=== PATIENT | female | born 1960 | race Caucasian/White ===

== ENCOUNTER 2016-12-26 22:33 | Emergency (ER) | payer MEDICAID ==
[2016-12-26 22:50] VITALS: RESP 18; TEMP 97.3
[2016-12-26] MEDS ORDERED: CHLORDIAZEPOXIDE 25MG PREPK#6 BTL TAKEHOME ONE (22:59)
[2016-12-26] MEDS ORDERED: chlordiazePOXIDE 25 MG CAP PO ONE (22:59)
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
[2016-12-26 23:22] VITALS: BP 144/98; PULSE 105; O2SAT 94
== END 2016-12-26 23:22 | disposition home or self-care (01) ==
LOC: EDUNIT#
DX: F10.129 Alcohol abuse with intoxication, unspecified (principal); F17.200 Nicotine dependence, unspecified, uncomplicated

== ENCOUNTER 2016-12-29 00:14 | Emergency (ER) | payer MEDICAID ==
[2016-12-29 00:36] VITALS: RESP 16; O2SAT 96
--- NOTE | 2016-12-29 01:09 | EDPHY ---
H & P Stated Complaint: c/o having choked on steak 4 days ago, continues to have diff swallowing Time Seen by Provider: 12/29/16 00:47 HPI/ROS: HPI The patient presents with difficulty swallowing and throat pain which has been present for the last 5 days. While she was intoxicated, she believe she ate a large piece of steak which got stuck in her throat. This occurred about 5 days ago. She says since then she has had difficulty swallowing food that is hard or chewy like meat. She is able to eat foods like peanut butter and jelly sandwiches and drink fluids without any difficulty. She has no drooling. She says she has had intermittent symptoms the knows that she needs to cut up her meet into small pieces to be able to eat properly. When she is intoxicated, she normally does not do this. She has not had any vomiting or bleeding. She has never been evaluated for this.. REVIEW OF SYSTEMS Constitutional: No fever, no chills. Eyes: No discharge. ENT: No sore throat. Cardiovascular: No chest pain, no palpitations. Respiratory: No cough, no shortness of breath. Gastrointestinal: No abdominal pain, no vomiting. Genitourinary: No hematuria. Musculoskeletal: No back pain. Skin: No rashes. Neurological: No headache. PMHx: Chronic alcohol abuse Soc Hx: Currently at the [facility] in detox, her sister last month PHYSICAL General Appearance: Alert, no distress Eyes: Pupils equal and round no pallor or injection ENT, Mouth: Mucous membranes moist Respiratory: There are no retractions, lungs are clear to auscultation Cardiovascular: Regular rate and rhythm Gastrointestinal: Abdomen is soft and non-tender, no masses, bowel sounds normal Neurological: A&O, moves all extremities Skin: Warm and dry, no rashes Musculoskeletal: Neck is supple non tender Extremities: symmetrical, full range of motion Psychiatric: Patient is oriented X 3, there is no agitation Source: Patient - Medical/Surgical History Hx Asthma: No Hx Chronic Respiratory Disease: No Hx Diabetes: No Hx Cardiac Disease: No Hx Renal Disease: No Hx Cirrhosis: No Hx Alcoholism: Yes Hx HIV/AIDS: No Hx Splenectomy or Spleen Trauma: No Other PMH: ETOH, depression/anxiety, tubal ligation - Social History Smoking Status: Heavy smoker Constitutional: Initial Vital Signs Temperature (C) 36.5 C 12/29/16 00:30 Heart Rate 105 H 12/29/16 00:30 Respiratory Rate 16 12/29/16 00:30 Blood Pressure 116/80 12/29/16 00:30 O2 Sat (%) 96 12/29/16 00:30 O2 Delivery Mode Room Air Allergies/Adverse Reactions: No Known Allergies Allergy (Verified 12/29/16 00:36) Home Medications: Medication Instructions Recorded Fluoxetine HCl [Prozac 40 mg] 40 mg PO 11/14/12 QUETIAPINE FUMARATE [Seroquel] 75 mg PO 11/14/12 Effexor 12/29/16 Topamax 12/29/16 Vistaril 12/29/16 Medical Decision Making Differential Diagnosis: This is a 56-year-old female presenting with difficulty swallowing for the last 5 days after eating a large piece of steak. She is able to eat soft foods and liquids without difficulty now. Differential diagnosis includes esophageal ring, esophageal web, achalasia, esophagitis. Given that the patient is able to tolerate most things by mouth. She can follow up as an outpatient with Gastroenterology. I have advised her to avoid any crunchy or hard foods. Departure - Departure Disposition: Home, Routine, Self-Care Clinical Impression: Dysphagia Qualifiers: Dysphagia type: unspecified Qualified Code(s): R13.10 - Dysphagia, unspecified Condition: Good Instructions: Dysphagia (ED) Additional Instructions: Please make sure to eat only soft foods and liquids until your feeling better. I have given you the information for Gastroenterology for you to follow up with. Return to the emergency room if your worse in any way. Referrals: [facility] [Other] - As per Instructions Carlos Mixon MD [Medical Doctor] - As per Instructions
[2016-12-29 01:49] VITALS: BP 138/80; PULSE 98; TEMP 98.6
== END 2016-12-29 02:00 | disposition home or self-care (01) ==
DX: R13.10 Dysphagia, unspecified (principal); F17.200 Nicotine dependence, unspecified, uncomplicated

== ENCOUNTER 2017-03-23 18:43 | Emergency (ER) | payer MEDICAID ==
[2017-03-23 18:54] VITALS: BP 131/87; PULSE 88; RESP 16; TEMP 98.8; O2SAT 90
--- NOTE | 2017-03-23 18:56 | EDPHY ---
H & P HPI/ROS: Chief Complaint: Alcohol intoxication HPI: 85-unsx-emy-year-old female who was found near the [place] [address] intoxicated. Patient passed out, arousable. Patient states she has been on a 10 day binge drinking. Is homeless Patient brought in by EMS for further evaluation. No obvious signs of trauma per EMS. Patient is a history of schizophrenia is been off her medications. Denies suicidal or homicidal ideations. Is feeling mildly paranoid. ROS: 10 point Review of Systems is negative except as noted in the HPI. PMH: Schizophrenia Medications: Seroquel and Prozac, noncompliant Allergies: Denies Social History: Positive for alcohol, homeless Family History: non-contributory Physical Exam: Gen: Awake, alert, slurred speech, ambulating unassisted HEENT: Atraumatic Nose: no epistaxis or deformity Eyes: PERRLA, EOMI Mouth: Moist mucosa Neck: Supple, no step-offs or deformity Chest: Atraumatic, lungs clear to auscultation Heart: S1, S2 normal, no murmur Abd: Soft, non-tender, no guarding Back: Atraumatic Ext: no edema, atraumatic Skin: no rash Neuro: Sensation grossly intact, Strength 5/5 in bilateral upper and lower extremities - Medical/Surgical History Hx Asthma: No Hx Chronic Respiratory Disease: No Hx Diabetes: No Hx Cardiac Disease: No Hx Renal Disease: No Hx Cirrhosis: No Hx Alcoholism: Yes Hx HIV/AIDS: No Hx Splenectomy or Spleen Trauma: No Other PMH: ETOH, depression/anxiety, tubal ligation - Social History Smoking Status: Heavy smoker Allergies/Adverse Reactions: No Known Allergies Allergy (Verified 12/29/16 00:36) Home Medications: Medication Instructions Recorded Fluoxetine HCl [Prozac 40 mg] 40 mg PO 11/14/12 QUETIAPINE FUMARATE [Seroquel] 75 mg PO 11/14/12 Effexor 12/29/16 Topamax 12/29/16 Vistaril 12/29/16 Medical Decision Making ED Course/Re-evaluation: Patient is intoxicated. She is ambulating unassisted in the emergency department. Vital signs are normal. She has no signs of trauma. She is without other complaint at this time. She is medically cleared for the [facility]. Departure - Departure Disposition: Home, Routine, Self-Care Clinical Impression: Alcoholic intoxication Condition: Good Instructions: Alcohol Intoxication (ED), Chlordiazepoxide (By mouth) Additional Instructions: Please seek help to decrease your alcohol consumption. Referrals: [facility],. [Clinic] - As per Instructions
[2017-03-23] MEDS ORDERED: CHLORDIAZEPOXIDE 25MG PREPK#6 BTL TAKEHOME ONE (18:57)
== END 2017-03-23 19:06 | disposition home or self-care (01) ==
LOC: EDUNIT#
DX: F10.129 Alcohol abuse with intoxication, unspecified (principal); F17.200 Nicotine dependence, unspecified, uncomplicated

== ENCOUNTER 2017-03-28 09:54 | Emergency (ER) | payer MEDICAID ==
[2017-03-28 10:03] VITALS: BP 137/90; PULSE 92; RESP 20; TEMP 98.1; O2SAT 95
--- NOTE | 2017-03-28 10:32 | EDPHY ---
H & P Time Seen by Provider: 03/28/17 10:27 HPI/ROS: CHIEF COMPLAINT: Dysuria HISTORY OF PRESENT ILLNESS: This patient is a 56 year old female complaining of intermittent moderate dysuria onset one week ago. She endorses a moderate burning sensation with urination, but denies frequency or urgency. She denies fever, vomiting, abdominal pain, flank pain or other associated symptoms. Past Medical/Surgical History: Depression, anxiety, tubal ligation, alcohol use Social History: Lives in [place]. Smoking Status: Heavy smoker Physical Exam: General Appearance: Alert, talkative Gastrointestinal: Abdomen is soft and non- tender Neurological: A&O, nonfocal, normal gait Skin: Warm and dry, no rash Extremities: Normal inspection Psychiatric: Mood and affect normal Constitutional: Initial Vital Signs Temperature (C) 36.7 C 03/28/17 10:01 Heart Rate 92 03/28/17 10:01 Respiratory Rate 20 03/28/17 10:01 Blood Pressure 137/90 H 03/28/17 10:01 O2 Sat (%) 95 03/28/17 10:01 O2 Delivery Mode Room Air Allergies/Adverse Reactions: No Known Allergies Allergy (Verified 03/28/17 10:00) Home Medications: Medication Instructions Recorded Fluoxetine HCl [Prozac 40 mg] 40 mg PO 11/14/12 QUETIAPINE FUMARATE [Seroquel] 75 mg PO 11/14/12 Effexor 12/29/16 Topamax 12/29/16 Vistaril 12/29/16 Cephalexin [Keflex (*)] 500 mg PO TID #21 cap 03/28/17 Medical Decision Making ED Course/Re-evaluation: 56 year old female presenting with one week history of dysuria. Urinalysis consistent with urinary tract infection. Urine culture sent. Plan to discharge home in good condition with prescription for Keflex and instructions to follow up with a primary care provider for further concerns. Return precautions discussed. - Data Points Laboratory Results: 03/28/17 10:15 Urine Color JAZIEL Urine Appearance TURBID Urine pH 7.0 (5.0-7.5) Ur Specific [place] 1.009 (1.002-1.030) Urine Protein 2+ H (NEGATIVE) Urine Ketones NEGATIVE (NEGATIVE) Urine Blood 2+ H (NEGATIVE) Urine Nitrate NEGATIVE (NEGATIVE) Urine Bilirubin NEGATIVE (NEGATIVE) Urine Urobilinogen NEGATIVE EU EU (0.2-1.0) Ur Leukocyte Esterase 3+ H (NEGATIVE) Urine RBC 50-182 /hpf H /hpf (0-3) Urine WBC 50-182 /hpf H /hpf (0-3) Ur Epithelial Cells NONE SEEN /lpf /lpf (NONE-1+) Urine Glucose NEGATIVE (NEGATIVE) Departure - Departure Disposition: Home, Routine, Self-Care Clinical Impression: Urinary tract infection Qualifiers: Urinary tract infection type: site unspecified Hematuria presence: without hematuria Qualified Code(s): N39.0 - Urinary tract infection, site not specified Condition: Good Instructions: Urinary Tract Infection in Women (ED) Additional Instructions: 1. Please take your Keflex as prescribed, three times daily. It is important that you finish your entire course of medication. 2. Follow up with a primary care provider for symptoms unresolved. We have referred you to our primary care provider denial resolution specialist, as well as a local clinic. 3. Seek care urgently if you develop fever, chills, vomiting, or other worsening of condition. Referrals: [facility],. [Clinic] - As per Instructions Prescriptions: Cephalexin [Keflex (*)] 500 mg PO TID #21 cap Report Scribed for: Sophia Kyle Report Scribed by: Shirlene Tavera Date of Report: 03/28/17 Time of Report: 11:10 Physician Review and Approval Statement: 03/28/17 11:10 Portions of this note were transcribed by a medical coding specialist. I personally performed a history, physical exam, medical decision making, and confirmed accuracy of information the transcribed note.
[2017-03-28 10:45] LABS: COLOR AMBER; LEUKOCYTE ESTERASE,URINE 3+ (NEGATIVE); NITRITE,URINE NEGATIVE (NEGATIVE)
[2017-03-28 10:47] LABS: RBC,URINE 50-182 /hpf (0-3); WBC,URINE 50-182 /hpf (0-3)
== END 2017-03-28 11:15 | disposition home or self-care (01) ==
DX: N39.0 Urinary tract infection, site not specified (principal); F17.200 Nicotine dependence, unspecified, uncomplicated; B95.7 Other staphylococcus as the cause of diseases classified elsewhere

== ENCOUNTER 2017-05-25 19:18 | Emergency (ER) | payer MEDICAID ==
[2017-05-25 19:24] VITALS: RESP 18; O2SAT 96
--- NOTE | 2017-05-25 19:32 | EDPHY ---
H & P Time Seen by Provider: 05/25/17 19:25 HPI/ROS: CHIEF COMPLAINT: Left foot and ankle pain since last evening HISTORY OF PRESENT ILLNESS: 56-year-old female arrives via private vehicle complaining of acute left foot and ankle pain after she accidentally rolled her foot hot last evening. She has been able to bear weight albeit with pain to the lateral malleolus and 5th metatarsal region. No deformity intact skin. No paresthesia. No proximal tibia or fibular pain. No knee pain. No fall from height PHYSICAL EXAM (Prior to examination, patient consented to physical exam, hands were washed and my usual and customary physical exam procedures followed) 1) GENERAL: Well-developed, well-nourished, alert and oriented. Appears to be in no acute distress. 2) HEAD: Normocephalic 3) HEENT: Pupils equal, round, reactive to light bilaterally. 4) LUNGS: Breathing comfortably. 5) MUSCULOSKELETAL: proximal tibia and fibula nontender . Fibular head and knee nontender. Tender to palpation lateral malleolus. No deformity no angulation. Tender to palpation 5th metatarsal. No deformity no angulation] negative Smalls test, compartments soft 6) SKIN: intact no tenting. 7) VASCULAR: DP,PT pulses and cap refill present and brisk DIFFERENTIAL DIAGNOSIS: in no particular order including but not limited to fracture, sprain, compartment syndrome Procedure: Splint A Calypso boot splint was applied by ER medical delivery technician. After application of the splint I returned and re-examined the patient. The splint was adequately immobilizing the joint and distal to the splint the patient's circulation and sensation were intact. Patient shows no signs of compartment syndrome. Was given orthopedic precautions. Smoking Status: Heavy smoker Constitutional: Initial Vital Signs Temperature (C) 36.8 C 05/25/17 19:22 Heart Rate 100 05/25/17 19:22 Respiratory Rate 18 05/25/17 19:22 Blood Pressure 134/90 H 05/25/17 19:22 O2 Sat (%) 96 05/25/17 19:22 O2 Delivery Mode Room Air Allergies/Adverse Reactions: No Known Allergies Allergy (Verified 05/25/17 19:21) Home Medications: Medication Instructions Recorded QUETIAPINE FUMARATE [Seroquel] 75 mg PO 11/14/12 Effexor 12/29/16 Topamax 12/29/16 Vistaril 12/29/16 MDM/Departure - [facility] Imaging Results: Imaging Impressions Ankle X-Ray 05/25/17 19:30 Impression: Talar- navicular joint capsule avulsions. 2. Left Foot , 3 views History:Pain post trauma. Findings: Dorsal midfoot fractures are confirmed. No malalignment or dislocation is identified. Incidentally noted is a moderate plantar calcaneal spur. Impression: Lula-navicular joint capsule avulsions. Foot X-Ray 05/25/17 19:30 Impression: Talar- navicular joint capsule avulsions. 2. Left Foot , 3 views History:Pain post trauma. Findings: Dorsal midfoot fractures are confirmed. No malalignment or dislocation is identified. Incidentally noted is a moderate plantar calcaneal spur. Impression: Lula-navicular joint capsule avulsions. Images were reviewed by myself Imaging: I viewed and interpreted images myself - Depart Disposition: Home, Routine, Self-Care Clinical Impression: Avulsion fracture of ankle Qualifiers: Encounter type: initial encounter Fracture type: closed Laterality: left Qualified Code(s): S82.892A - Other fracture of left lower leg, initial encounter for closed fracture Condition: Good Instructions: Ankle Fracture (ED) Additional Instructions: Return to the ER immediately if you experience discoloration, have worsening pain, numbness, tingling, or any other symptoms that concern you. If you received x-rays in the emergency department today, be advised, that ligamentous , tendon, muscular, and other non-bony injury cannot be fully ruled out. Try to keep your affected extremity elevated above the level of your chest, and keep cold packs on the affected area, for the next 48 hours. Referrals: Warren Perez MD [Medical Doctor] - 2-3 days without fail
[2017-05-25] MEDS ORDERED: IBUPROFEN 200 MG TAB PO ONE (20:25)
[2017-05-25 20:44] VITALS: BP 142/98; PULSE 92; TEMP 98.1
== END 2017-05-25 20:44 | disposition home or self-care (01) ==
DX: S82.892A Other fracture of left lower leg, initial encounter for closed fracture (principal); F17.200 Nicotine dependence, unspecified, uncomplicated; X58.XXXA Exposure to other specified factors, initial encounter
CPT/HCPCS: L4386

== ENCOUNTER 2017-06-19 03:49 | Emergency (ER) | payer MEDICAID ==
--- NOTE | 2017-06-19 03:58 | EDPHY ---
H & P HPI/ROS: HPI CHIEF COMPLAINT: "I am cold and hungry" HISTORY OF PRESENT ILLNESS: This patient 57-year-old female, she is homeless, history of PTSD and schizophrenia, she presents emergency room after she called 911 as she is cold and hungry. She states she was out in the cold weather. She denies any focal medical complaint. She states she just wanted to get somewhere warm and have something to eat. Past Medical History: PTSD, schizophrenia Past Surgical History: No recent surgery Social History: Admits to alcohol use and methamphetamine use. Homeless. Family History: Noncontributory ROS REVIEW OF SYSTEMS: A comprehensive 10 point review of systems is otherwise negative aside from elements mentioned in the history of present illness. Exam Constitutional appears well nontoxic triage nursing summary reviewed, vital signs reviewed, awake/alert. She is not hypothermic. Vital signs stable. Eyes normal conjunctivae and sclera, EOMI, PERRLA. HENT normal inspection, atraumatic, moist mucus membranes, no epistaxis, neck supple/ no meningismus, no raccoon eyes. Respiratory clear to auscultation bilaterally, normal breath sounds, no respiratory distress, no wheezing. Cardiovascular rate normal, regular rhythm, no murmur, no edema, distal pulses normal. Gastrointestinal soft, non-tender, no rebound, no guarding, normal bowel sounds, no distension, no pulsatile mass. Genitourinary no CVA tenderness. Musculoskeletal no midline vertebral tenderness, full range of motion, no calf swelling, no tenderness of extremities, no meningismus, good pulses, neurovascularly intact. Skin pink, warm, & dry, no rash, skin atraumatic. Neurologic awake, alert and oriented x 3, AAOx3, moves all 4 extremities equally, motor intact, sensory intact, CN II-XII intact, normal cerebellar, normal vision, normal speech. Psychiatric normal mood/affect. Heme/Lymph/Immune no lymphadenopathy. Differential Diagnosis: Includes but is not limited to and in no particular order: Environmental exposure, cold exposure, homelessness Medical Decision Making: Plan for this patient warm blanket. Food. Check vital signs make sure she is not hypothermic. If she is hemodynamically stable not hypothermic she can be discharged from the emergency room. Source: Patient, EMS - Medical/Surgical History Hx Asthma: No Hx Chronic Respiratory Disease: No Hx Diabetes: No Hx Cardiac Disease: No Hx Renal Disease: No Hx Cirrhosis: No Hx Alcoholism: Yes Hx HIV/AIDS: No Hx Splenectomy or Spleen Trauma: No Other PMH: ETOH, depression/anxiety, tubal ligation - Social History Smoking Status: Heavy smoker Allergies/Adverse Reactions: No Known Allergies Allergy (Verified 06/19/17 03:53) Home Medications: Medication Instructions Recorded QUETIAPINE FUMARATE [Seroquel] 75 mg PO 11/14/12 Effexor 12/29/16 Topamax 12/29/16 Vistaril 12/29/16 Departure - Departure Disposition: Home, Routine, Self-Care Clinical Impression: Cold exposure Qualifiers: Encounter type: initial encounter Qualified Code(s): T69.9XXA - Effect of reduced temperature, unspecified, initial encounter Condition: Good Instructions: Methamphetamine Abuse (ED) Referrals: Patient,NotPresent [Primary Care Provider] - As per Instructions
[2017-06-19 04:01] VITALS: BP 151/98; PULSE 83; RESP 16; TEMP 98.1; O2SAT 94
== END 2017-06-19 04:05 | disposition home or self-care (01) ==
LOC: EDUNIT#
DX: T69.9XXA Effect of reduced temperature, unspecified, initial encounter (principal); F17.200 Nicotine dependence, unspecified, uncomplicated; X31.XXXA Exposure to excessive natural cold, initial encounter

== ENCOUNTER 2017-09-20 16:21 | Observation (INO) | payer MEDICAID ==
--- NOTE | 2017-09-20 16:27 | EDPHY ---
H & P Source: Patient, Old records Exam Limitations: Intoxication - Medical/Surgical History Hx Asthma: No Hx Chronic Respiratory Disease: No Hx Diabetes: No Hx Cardiac Disease: No Hx Renal Disease: No Hx Cirrhosis: No Hx Alcoholism: Yes Hx HIV/AIDS: No Hx Splenectomy or Spleen Trauma: No Other PMH: ETOH, depression/anxiety, tubal ligation - Social History Smoking Status: Heavy smoker Time Seen by Provider: 09/20/17 16:26 HPI/ROS: HPI: This is a 57-year-old female who presents with Chief Complaint: Alcohol, anxiety Location:epigastric Quality:vomiting Duration:2-3 days Signs and Symptoms: no fever, + nausea, + vomiting, no hematemesis, no blood in stool, + abdominal bloating, + diarrhea, no back pain, no urinary symptoms, no vaginal bleeding/discharge, + indigestion, no chest pain, no shortness of breath Timing: Sudden, intermittent episodes Severity: Moderate to severe Context: Patient has a history of alcoholism, last drink at 3:00 p.m. of vodka , arrives via EMS, presents with 2-3 day of nausea, vomiting and diarrhea. She reports that she had diarrhea for the 1st day approximately 5 times but has since stopped and no episodes in the last 2 days. She reports that she has a burning sensation in the epigastric area, nonradiating in nature, worsened with emesis. She reports that her emesis was black 2 days ago but since it is just dry heaves and phlegm. She had been sober for 56 days but had started drinking again 6 days ago. She was unable to get to the liquor store so she purchased 321 beer which she believes irritated her stomach. She denies any fever/blood in her stool/vaginal bleeding/vaginal discharge/chest pain/shortness of breath. No prior history of esophageal varices/alcoholic gastritis/pancreatitis. She reports that she has a poor appetite has eaten nothing today. Modifying Factors: None Comment: ROS: see HPI Constitutional: No fever, no chills, no weight loss Eyes: No blurred vision Respiratory: No shortness of breath, no cough Cardiovascular: No chest pain, no palpitations Gastrointestinal: No nausea, no vomiting, no diarrhea, no hematemesis, no blood in stool Genitourinary: No dysuria, no blood in urine Extremities: No myalgias, no edema Neurologic: No weakness, no numbness Skin: No rashes, no petechiae Hematologic: No bruising, no bleeding MEDICAL/SURGICAL/SOCIAL HISTORY: Medical/Surgical history: ETOH, depression/anxiety, tubal ligation Social history: No longer homeless and has a place locally. CONSTITUTIONAL: Adult white female who appears older than stated age, patient does not smell of alcohol, awake and alert, no obvious distress HEENT: Atraumatic and normocephalic, PERRL, EOMI. Nonicteric. Tympanic membranes clear. Oropharynx clear, no exudate and moist pink mucosa. Airway patent. No lymphadenopathy. No meningismus. Cardiovascular: Normal S1/S2, regular rate, regular rhythm, without murmur rub or gallop. PULMONARY/CHEST: Symmetrical and moderate epigastric tenderness. Clear to auscultation bilaterally. Good air movement. No accessory muscle usage. ABDOMEN: Soft, mildly distended, nontender, no rebound, no guarding, no peritoneal signs, no masses or organomegaly. No CVAT. EXTREMITIES: 2/2 pulses, strength 5/5, no deformities, no clubbing, no cyanosis or edema. NEUROLOGICAL: no focal neuro deficits. GCS 15. Long-term memory deficits noted. follows 2 step commands. Ambulatory without deficits. SKIN: Warm and dry, no erythema. no rash. Good capillary refill. (Leigh Means) Constitutional: Initial Vital Signs Temperature (C) 36.9 C 09/20/17 16:32 Heart Rate 125 H 09/20/17 16:32 Respiratory Rate 18 09/20/17 16:32 Blood Pressure 150/110 H 09/20/17 16:32 O2 Sat (%) 95 09/20/17 16:32 O2 Delivery Mode Room Air Allergies/Adverse Reactions: No Known Allergies Allergy (Verified 06/19/17 03:53) Home Medications: Medication Instructions Recorded QUETIAPINE FUMARATE [Seroquel] 75 mg PO 11/14/12 Effexor 12/29/16 Topamax 12/29/16 DULoxetine 09/20/17 Medical Decision Making - Diagnostics EKG Interpretation: EKG interpreted by me shows sinus tachycardia with normal interval and axis. QRS is normal. There is no significant ST elevation or depression. There is no arrhythmia. The rate is 115 (Shmuel,Michael S) 12 lead EKG: Indication: Abdominal pain Rhythm: Sinus tachycardia, rate of 115 beats per minute [place]: Normal Intervals: Normal QRS: Normal ST segments: Nonspecific changes T segment: Nonspecific changes INTERPRETATION: No acute ischemic changes The 12 lead EKG was interpreted by myself and with attending. (Leigh Means) Imaging Results: Imaging Impressions Abdomen CT 09/20/17 16:37 Impression: 1. Hepatomegaly with profound steatosis. 2. Moderate-sized hiatal hernia with concentric thickening of the distal thoracic esophagus above the hernia. Endoscopic correlation is recommended. 3. Query duodenitis involving the third portion. Findings were discussed with Leigh Means PA-C at 18:13, on 09/20/2017. Chest X-Ray 09/20/17 16:59 Impression: Negative chest.. ED Course/Re-evaluation: I also saw the patient in the emergency department at 5:45 p.m.. I reviewed the history of sobriety and then recent drinking. I discussed with her her abdominal pain and vomiting. Her exam shows tenderness in the epigastrium. Otherwise heart lung exam is normal. I reviewed her EKG. The patient and I discussed treatment plan including recommendation for admission. She expresses understanding and agreement (Michael Mi) EKG, labs, urinalysis, IV fluids, IV medications, oral medications, CT abdomen and pelvis scan ordered Patient's tachycardic upon arrival likely due to prerenal etiology. Given 2 L normal saline along with IV Protonix, IV Zofran, IV Ativan and p.o. Librium EKG shows sinus tachycardia but no arrhythmias/acute ischemic changes 1710: Labs reviewed and show increased anion gap decreased CO2, mildly elevated LFTs, serum ethanol level 124. H&H stable. 1730: Troponin .042; given chewable aspirin. Called by Dr. Quintanilla who advises that CT abdomen and pelvis scan shows the severe fatty liver, no pancreatitis, moderate hiatal hernia, esophagitis, duodenitis. 1835: ED decision to consult for admission. Spoke with hospitalist, Dr. Magaña, regarding admission for cardiac monitoring and serial troponins along with intractable nausea and vomiting with alcoholic gastritis/esophagitis/duodenitis with bleeding. Patient will benefit from EGD and medical management. This patient was seen under the supervision of my secondary supervising physician. Patient was seen in conjunction with Dr. Mi who evaluated the patient. Patient's presentation, labs/imaging, treatment and plan of care were discussed with secondary supervising physician. (Leigh Means) Differential Diagnosis: Symptoms consistent with gastritis however the patient does have an elevated troponin. No significant EKG findings. Tachycardia consistent with alcohol withdrawal. (Michael Mi) Differential diagnosis includes but is not limited to alcoholic gastritis, gastroenteritis, viral syndrome, alcohol withdrawal symptoms, esophageal varices , upper GI bleed. (Leigh Means) - Data Points Laboratory Results: Laboratory Results 09/20/17 16:16 09/20/17 16:16 09/20/17 09/20/17 09/20/17 16:16 16:16 16:16 WBC 9.99 10^3/uL H 10^3/uL (3.80-9.50) RBC 5.26 10^6/uL 10^6/uL (4.18-5.33) Hgb 15.4 g/dL g/dL (12.6-16.3) Hct 44.7 % % (38.0-47.0) MCV 85.0 fL fL (81.5-99.8) MCH 29.3 pg pg (27.9-34.1) MCHC 34.5 g/dL g/dL (32.4-36.7) RDW 16.2 % H % (11.5-15.2) Plt Count 260 10^3/uL 10^3/uL (150-400) MPV 9.7 fL fL (8.7-11.7) Neut % (Auto) 76.6 % H % (39.3-74.2) Lymph % (Auto) 14.7 % L % (15.0-45.0) [place] % (Auto) 7.8 % % (4.5-13.0) Eos % (Auto) 0.1 % L % (0.6-7.6) Baso % (Auto) 0.3 % % (0.3-1.7) Nucleat RBC Rel Count 0.0 % % (0.0-0.2) Absolute Neuts (auto) 7.65 10^3/uL H 10^3/uL (1.70-6.50) Absolute Lymphs (auto) 1.47 10^3/uL 10^3/uL (1.00-3.00) Absolute Monos (auto) 0.78 10^3/uL 10^3/uL (0.30-0.80) Absolute Eos (auto) 0.01 10^3/uL L 10^3/uL (0.03-0.40) Absolute Basos (auto) 0.03 10^3/uL 10^3/uL (0.02-0.10) Absolute Nucleated RBC 0.00 10^3/uL 10^3/uL (0-0.01) Immature Gran % 0.5 % % (0.0-1.1) Immature Gran # 0.05 10^3/uL 10^3/uL (0.00-0.10) Sodium 137 mEq/L mEq/L (134-144) Potassium 4.5 mEq/L mEq/L (3.5-5.2) Chloride 95 mEq/L L mEq/L (97-110) Carbon Dioxide 15 mEq/l L mEq/l (22-31) Anion Gap 27 mEq/L H mEq/L (8-16) BUN 16 mg/dL mg/dL (7-23) Creatinine 0.6 mg/dL mg/dL (0.6-1.0) Estimated GFR > 60 Glucose 102 mg/dL H mg/dL (70-100) Calcium 11.6 mg/dL H mg/dL (8.5-10.4) Phosphorus 1.8 mg/dL L mg/dL (2.5-4.5) Total Bilirubin 1.2 mg/dL mg/dL (0.1-1.4) Conjugated Bilirubin 0.5 mg/dL mg/dL (0.0-0.5) Unconjugated Bilirubin 0.7 mg/dL mg/dL (0.0-1.1) AST 74 IU/L H IU/L (14-46) ALT 62 IU/L H IU/L (9-52) Alkaline Phosphatase 154 IU/L H IU/L (38-126) Troponin I 0.042 ng/mL H ng/mL (0.000-0.034) Total Protein 7.9 g/dL g/dL (6.3-8.2) Albumin 4.9 g/dL g/dL (3.5-5.0) Lipase 204 IU/L IU/L (23-300) Beta HCG, Qual NEGATIVE Ethyl Alcohol 124 mg/dL H mg/dL (0-10) Medications Given: Discontinued Medications Aspirin (Aspirin) 324 mg PO EDNOW ONE Stop: 09/20/17 17:32 Last Admin: 09/20/17 18:40 Dose: 324 mg Chlordiazepoxide HCl (Librium) 25 mg PO EDNOW ONE Stop: 09/20/17 16:39 Last Admin: 09/20/17 16:44 Dose: 25 mg Sodium Chloride (Ns) 1,000 mls @ 0 mls/hr IV EDNOW ONE; Wide Open PRN Reason: Protocol Stop: 09/20/17 16:38 Last Admin: 09/20/17 16:40 Dose: 1,000 mls Sodium Chloride (Ns) 1,000 mls @ 0 mls/hr IV EDNOW ONE; Wide Open PRN Reason: Protocol Stop: 09/20/17 16:38 Last Admin: 09/20/17 16:41 Dose: 1,000 mls Lorazepam (Ativan Injection) 2 mg IVP EDNOW ONE Stop: 09/20/17 16:36 Last Admin: 09/20/17 16:41 Dose: 2 mg Ondansetron HCl (Zofran) 4 mg IVP EDNOW ONE Stop: 09/20/17 16:38 Last Admin: 09/20/17 16:44 Dose: 4 mg Pantoprazole Sodium (Protonix) 40 mg IVP EDNOW ONE Stop: 09/20/17 16:39 Last Admin: 09/20/17 16:44 Dose: 40 mg Departure - Departure Disposition: [facility] Acute Clinical Impression: Duodenitis, Esophagitis, Elevated troponin Alcoholic gastritis with bleeding Qualifiers: Chronicity: acute Qualified Code(s): K29.21 - Alcoholic gastritis with bleeding Intractable nausea and vomiting Qualifiers: Vomiting type: unspecified Qualified Code(s): R11.2 - Nausea with vomiting, unspecified Condition: Fair
[2017-09-20] MEDS ORDERED: LORazepam 2 MG/ML INJ IVP ONE (16:35)
[2017-09-20] MEDS ORDERED: NS 1,000 ML IV ONE ×2 (16:37)
[2017-09-20] MEDS ORDERED: ONDANSETRON 4 MG/2 ML VIAL IVP ONE (16:37)
[2017-09-20] MEDS ORDERED: chlordiazePOXIDE 25 MG CAP PO ONE (16:38)
[2017-09-20] MEDS ORDERED: PANTOPRAZOLE SODIUM 40 MG VIAL IVP ONE (16:38)
--- NOTE | 2017-09-20 16:44 | CPEKG ---
Heart Rate: 115 RR Interval: 522 P-R Interval: 128 QRSD Interval: 74 QT Interval: 304 QTC Interval: 421 P [place]: 62 QRS [place]: 49 T Wave [place]: 59 EKG Severity - ABNORMAL ECG - EKG Impression: SINUS TACHYCARDIA EKG Impression: CONSIDER ANTEROSEPTAL INFARCT Electronically Signed By: Db Serrato 21-Sep-2017 11:40:34
[2017-09-20 16:52] LABS: PLATELET COUNT 260 10^3/uL (150-400)
[2017-09-20] MEDS ORDERED: IOPAMIDOL (ISOVUE-300) 100 ML BTL ONE (17:15)
[2017-09-20] MEDS ORDERED: ASPIRIN 81 MG CHEWABLE TAB PO ONE (17:31)
--- NOTE | 2017-09-20 19:21 | PDGENHP ---
History and Physical - Chief Complaint nausea and vomiting - History of Present Illness 57 y/o female with h/o ETOH abuse presents with 3 days of intractable nausea and vomiting. Denies bloody emesis, but describes some of her vomitus as being dark in color. Denies Melena or BRBPR. She has not been able to eat anything for the past few days. Despite this, she has continued to try to drink Vodka. She typically drinks 2 pints of vodka per day. Her last drink was 3pm today. She reports sharp substernal chest pain and heart burn. She had recently been sober for >50 days and relapsed 6 days ago. She wants to regain her sobriety. History Information - Allergies/Home Medication List Allergies/Adverse Reactions: No Known Allergies Allergy (Verified 06/19/17 03:53) Home Medications: QUEtiapine FUMARATE [Seroquel 100 mg (*)] 100 mg PO TID 09/20/17 [Last Taken Unknown] Topiramate [Topamax 25MG (*)] 50 mg PO BID 09/20/17 [Last Taken Unknown] Venlafaxine HCl [Venlafaxine 37.5MG (*)] 75 mg PO DAILY 09/20/17 [Last Taken Unknown] hydrOXYzine HCL [Vistaril] 50 - 100 mg PO BID PRN 09/20/17 [Last Taken Unknown] I have personally reviewed and updated: family history, medical history, social history, surgical history - Surgical History Additional surgical history: Tubal ligation - Family History Additional family history: sister recently of pancreatic cancer - Social History Smoking Status: Heavy smoker (4/day) Alcohol Use: Heavy (2 pints of vodka per day) Drug Use: None Review of Systems Review of Systems: ROS: 10pt was reviewed & negative except for what was stated in HPI & below Physical Exam Physical Exam: Temp Pulse Resp BP Pulse Ox 36.7 C 97 15 148/96 H 93 09/20/17 18:00 09/20/17 18:00 09/20/17 18:00 09/20/17 18:00 09/20/17 18:00 Constitutional: no apparent distress, appears nourished, not in pain, other ( smells of alcohol) Eyes: PERRL, anicteric sclera, EOMI Ears, Nose, Mouth, Throat: moist mucous membranes, hearing normal, ears appear normal, no oral mucosal ulcers Cardiovascular: regular rate and rhythym, no murmur, rub, or gallop, No edema Respiratory: no respiratory distress, no rales or rhonchi, clear to auscultation Gastrointestinal: normoactive bowel sounds, soft, non-tender abdomen, no palpable masses, No guarding, No rebound Genitourinary: no bladder fullness, no bladder tenderness Skin: warm, normal color, no rashes or abrasions, no fluctuance, no induration, No mottled Neurologic: AAOx3, CN II-XII Intact, No facial droop Psychiatric: interacting appropriately, not anxious, not encephalopathic, thought process linear Lymph, Heme, Immunologic: no cervical LAD, no supraclavicular LAD Lab Data & Imaging Review 09/20/17 16:16 09/20/17 16:16 WBC 9.99 10^3/uL (3.80-9.50) H 09/20/17 16:16 RBC 5.26 10^6/uL (4.18-5.33) 09/20/17 16:16 Hgb 15.4 g/dL (12.6-16.3) 09/20/17 16:16 Hct 44.7 % (38.0-47.0) 09/20/17 16:16 MCV 85.0 fL (81.5-99.8) 09/20/17 16:16 MCH 29.3 pg (27.9-34.1) 09/20/17 16:16 MCHC 34.5 g/dL (32.4-36.7) 09/20/17 16:16 RDW 16.2 % (11.5-15.2) H 09/20/17 16:16 Plt Count 260 10^3/uL (150-400) 09/20/17 16:16 MPV 9.7 fL (8.7-11.7) 09/20/17 16:16 Neut % (Auto) 76.6 % (39.3-74.2) H 09/20/17 16:16 Lymph % (Auto) 14.7 % (15.0-45.0) L 09/20/17 16:16 [place] % (Auto) 7.8 % (4.5-13.0) 09/20/17 16:16 Eos % (Auto) 0.1 % (0.6-7.6) L 09/20/17 16:16 Baso % (Auto) 0.3 % (0.3-1.7) 09/20/17 16:16 Nucleat RBC Rel Count 0.0 % (0.0-0.2) 09/20/17 16:16 Absolute Neuts (auto) 7.65 10^3/uL (1.70-6.50) H 09/20/17 16:16 Absolute Lymphs (auto) 1.47 10^3/uL (1.00-3.00) 09/20/17 16:16 Absolute Monos (auto) 0.78 10^3/uL (0.30-0.80) 09/20/17 16:16 Absolute Eos (auto) 0.01 10^3/uL (0.03-0.40) L 09/20/17 16:16 Absolute Basos (auto) 0.03 10^3/uL (0.02-0.10) 09/20/17 16:16 Absolute Nucleated RBC 0.00 10^3/uL (0-0.01) 09/20/17 16:16 Immature Gran % 0.5 % (0.0-1.1) 09/20/17 16:16 Immature Gran # 0.05 10^3/uL (0.00-0.10) 09/20/17 16:16 Sodium 137 mEq/L (134-144) 09/20/17 16:16 Potassium 4.5 mEq/L (3.5-5.2) 09/20/17 16:16 Chloride 95 mEq/L (97-110) L 09/20/17 16:16 Carbon Dioxide 15 mEq/l (22-31) L 09/20/17 16:16 Anion Gap 27 mEq/L (8-16) H 09/20/17 16:16 BUN 16 mg/dL (7-23) 09/20/17 16:16 Creatinine 0.6 mg/dL (0.6-1.0) 09/20/17 16:16 Estimated GFR > 60 09/20/17 16:16 Glucose 102 mg/dL (70-100) H 09/20/17 16:16 Calcium 11.6 mg/dL (8.5-10.4) H 09/20/17 16:16 Phosphorus 1.8 mg/dL (2.5-4.5) L 09/20/17 16:16 Total Bilirubin 1.2 mg/dL (0.1-1.4) 09/20/17 16:16 Conjugated Bilirubin 0.5 mg/dL (0.0-0.5) 09/20/17 16:16 Unconjugated Bilirubin 0.7 mg/dL (0.0-1.1) 09/20/17 16:16 AST 74 IU/L (14-46) H 09/20/17 16:16 ALT 62 IU/L (9-52) H 09/20/17 16:16 Alkaline Phosphatase 154 IU/L (38-126) H 09/20/17 16:16 Troponin I 0.042 ng/mL (0.000-0.034) H 09/20/17 16:16 Total Protein 7.9 g/dL (6.3-8.2) 09/20/17 16:16 Albumin 4.9 g/dL (3.5-5.0) 09/20/17 16:16 Lipase 204 IU/L (23-300) 09/20/17 16:16 Beta HCG, Qual NEGATIVE 09/20/17 16:16 Ethyl Alcohol 124 mg/dL (0-10) H 09/20/17 16:16 Visualized and Interpreted Chest x-ray results: Yes Chest X-Ray results: no infiltrate, normal Visualized and Interpreted imaging results: Yes Interpretation: Impression: . 1. Hepatomegaly with profound steatosis. 2. Moderate-sized hiatal hernia with concentric thickening of the distal thoracic esophagus above. the hernia. Endoscopic correlation is recommended. 3. Query duodenitis involving the third portion. Visualized and Interpreted EKG results: Yes EKG Interpretation: Positive for: Q waves (v1/v2 no acute ischemic changes) Assessment & Plan Assessment: 57 y/o female with history of ETOH abuse presents with: #Intractible Nausea and vomiting suspect ETOH related gastritis #Mildly elevated troponin likely due to above doubt ACS #Anion Gapped Metabolic Acidosis #Low Phos #Alcohol abuse #Tobacco abuse Plan: -IV hydration -Antiemetics -IV Pantoprazole -CIWA protocol -Trend Troponin -Nicotine replacement -replace electrolytes and phos per protocol -repeat labs in AM Place in Observation Patient requests to be full code status will defer starting DVT-P for now given risk of bleeding
[2017-09-20] MEDS ORDERED: chlordiazePOXIDE 25 MG CAP PO PRN (19:35)
[2017-09-20] MEDS ORDERED: NICOTINE 21 MG/24 HR PATCH TD PRN (19:35)
[2017-09-20] MEDS ORDERED: PROTOCOL MAGNESIUM 1 DOSE IV PRN (19:36)
[2017-09-20] MEDS ORDERED: PROTOCOL K PHOSPHATE 1 DOSE IV PRN (19:36)
[2017-09-20] MEDS ORDERED: PROMETHAZINE HCL 25 MG/ML INJ IVP PRN (19:38)
[2017-09-20] MEDS ORDERED: hydrOXYzine HCL 50 MG TAB PO PRN (19:38)
[2017-09-20] MEDS ORDERED: ONDANSETRON 4 MG/2 ML VIAL IVP PRN (19:38)
[2017-09-20] MEDS ORDERED: POTASSIUM Cl (KCl) 20 MEQ in D5W NS 1,000 ML IV SCH (19:45)
[2017-09-20] MEDS: QUEtiapine FUMARATE 100 MG TAB PO SCH (23:37)
[2017-09-20] MEDS: FAMOTIDINE 20 MG TAB PO SCH (23:38)
[2017-09-20] MEDS: PANTOPRAZOLE SODIUM 40 MG VIAL IVP SCH (23:52)
[2017-09-20] MEDS: TOPIRAMATE 25 MG TAB PO SCH (23:53)
[2017-09-21 06:16] LABS: PLATELET COUNT 150 10^3/uL (150-400)
[2017-09-21] MEDS: FOLIC ACID 1 MG TAB PO SCH (09:31)
[2017-09-21] MEDS: VENLAFAXINE HCL 75 MG TAB PO SCH (09:31)
[2017-09-21] MEDS: TOPIRAMATE 25 MG TAB PO SCH ×2 (09:31→20:35)
[2017-09-21] MEDS: MULTIVITAMINS 1 EACH TAB PO SCH (09:31)
[2017-09-21] MEDS: PANTOPRAZOLE SODIUM 40 MG VIAL IVP SCH ×2 (09:31→20:36)
[2017-09-21] MEDS: QUEtiapine FUMARATE 100 MG TAB PO SCH ×3 (09:32→20:43)
[2017-09-21] MEDS: FAMOTIDINE 20 MG TAB PO SCH ×2 (09:32→20:35)
--- NOTE | 2017-09-21 09:35 | ASMTCASEMG ---
Living Arrangements What is your living Answers: Alone arrangement? Who do you live with? Type Of Residence What kind of residence do Answers: House you live in? Discharge Plan Comments Coordination Status Comments Notes: Pt is a 78 y/o female admitted for nausea and vomiting. Pt has a hx of ETOH abuse. Pt relapsed after being sober for more than 50 days. Pt reports drinking 2 pints of vodka daily. PT has been ordered and awaiting recommendations. CM met w/ pt for dispo planning. Pt reports that she already has ETOH resources. Pt reports that she has been trying to get sober since 2011. Pt reports that going to AA helps support her sobriety. Pt reports that she will need help getting back home when she is medically ready to d/c. Pt reports that she hasn't eaten in about almost a week. Pt continues to endorse pain and nausea. Anticipates that pt will d/c independent. CM available for changes. Plan: Independent Date Signed: 09/21/2017 09:35 AM Electronically Signed By:ALEYDA Cedillo
[2017-09-21] MEDS ORDERED: K PHOS 20 MMOL in D5W 250 ML IV ONE (12:00)
--- NOTE | 2017-09-21 16:23 | ASMTCMCOM ---
CM Note CM Note Notes: CM spoke w/ Dr. Schulz regarding d/c POC. Pt may have relapsed after running out of her psych meds. Pt was requested to have a follow up appointment with [facility] before being prescribed more psych meds. CM left a msg with pts therapist Basilia at [facility] in [place]. CM called [facility] and scheduled a follow appointment w/ her PCP, Dr. Hartmann. CM inputted appointment into [facility]. CM available for d/c needs. Date Signed: 09/21/2017 04:23 PM Electronically Signed By:ALEYDA Cedillo
--- NOTE | 2017-09-21 17:14 | HOSPPROG ---
Hospitalist Progress Note Assessment/Plan: DIAGNOSES: -acute alcoholic gastritis/esophagitis strongly suspected as cause of pain and vomiting -mild improvement today but still quite symptomatic and not able to eat -acute dehydration due to above -metabolic acidosis, likely due to GI losses, resolved at this time -hypercalcemia, likely due to dehydration, resolved with hydration -strongly suspect thiamine deficiency due to alcohol abuse, receiving replacement, asymptomatic -minimal indeterminate troponin elevations likely due to myocardial strain as opposed to a coronary event, no symptoms of coronary event EKG unremarkable This patient is strongly desiring to get back to sobriety which she had done for 6 months prior to 6 days ago. She states that she ran out of her Seroquel just couple of days before she started drinking again and I suspect this had a lot to do with it. She has had trouble getting a follow-up appointment at the [facility] in [place], and was unable to get a refill. I have asked our social insurance adviser to try and contact [facility] to see if they can facilitate the appointment making process for this patient has difficulty with that. PLANS: -continue proton pump inhibitors, IV hydration, antiemetics -continue thiamin replacement -follow electrolytes -do not feel further evaluation for troponin elevation is necessary unless other abnormalities surface -social insurance adviser attempting to fit facilitate appointment making process for the patient at [facility] for follow-up and future appointments SUBJECTIVE: Still with a lot of pain and nausea, not vomiting at this time. No evidence of bleeding No fever symptoms Moderately anxious but not really having much in the way of withdrawal symptoms OBJECTIVE Vitals reviewed: Still with some sinus tachycardia but otherwise stable vitals no fever Strategic Marketing Leader, my review: Sinus tach Exam: alert oriented skin warm dry color ok resps not labored lungs clear BSs heart regular abd soft nondistended nontender, bowel sounds present limbs warm, no edema iv site ok Laboratory data reviewed: Troponins now down a normal Calcium now normal and acidosis is resolved Mild decrease in hemoglobin is likely largely delusional do not think she has bleeding Objective: Vital Signs Temp Pulse Resp BP Pulse Ox 36.8 C 90 18 128/81 H 93 09/21/17 15:46 09/21/17 15:46 09/21/17 15:46 09/21/17 15:46 09/21/17 15:46 Laboratory Results 09/21/17 06:00 09/21/17 06:00 09/20/17 09/21/17 09/22/17 06:59 06:59 06:59 Intake Total 3400 500 Output Total 900 Balance 3400 -400 - Time Spent With Patient Time Spent with Patient: greater than 35 minutes Time Spent with Patient: Greater than 35 minutes spent on this patients care, greater than 50% of time spent counseling, educating, and coordinating care regarding the above mentioned plan. ICD10 Worksheet Patient Problems: Problems Problem Status Onset Alcoholic gastritis with bleeding Acute Duodenitis Acute Elevated troponin Acute Esophagitis Acute Intractable nausea and vomiting Acute
[2017-09-21] MEDS: MAG HYDROX/AL HYDROX/SIMETH 30 ML UDCUP PO PRN ×2 (19:52→23:46)
[2017-09-21 20:07] VITALS: O2SAT 95
[2017-09-22] MEDS: MAG HYDROX/AL HYDROX/SIMETH 30 ML UDCUP PO PRN ×2 (06:02→13:44)
[2017-09-22] MEDS: PANTOPRAZOLE SODIUM 40 MG VIAL IVP SCH (09:02)
[2017-09-22] MEDS: FAMOTIDINE 20 MG TAB PO SCH (09:02)
[2017-09-22] MEDS: MULTIVITAMINS 1 EACH TAB PO SCH (09:02)
[2017-09-22] MEDS: QUEtiapine FUMARATE 100 MG TAB PO SCH (09:02)
[2017-09-22] MEDS: FOLIC ACID 1 MG TAB PO SCH (09:02)
[2017-09-22] MEDS: VENLAFAXINE HCL 75 MG TAB PO SCH (09:03)
[2017-09-22] MEDS: TOPIRAMATE 25 MG TAB PO SCH (09:03)
[2017-09-22 11:50] VITALS: BP 107/76; PULSE 95; RESP 20; TEMP 98.4
[2017-09-22] MEDS ORDERED: K PHOS 20 MMOL in D5W 250 ML IV ONE (12:00)
--- NOTE | 2017-09-22 13:28 | GDS ---
[f rep st] DISCHARGE SUMMARY DISCHARGE DIAGNOSES: 1. Acute alcoholic gastritis/esophagitis. 2. Dehydration due to above. 3. Metabolic acidosis. 4. Hypercalcemia due to dehydration. 5. Chronic alcohol use and suspicion for thiamine deficiency. 6. Indeterminate troponin. CONSULTANTS: None. HOSPITAL COURSE AND STAY BY PROBLEM: Acute alcoholic gastritis/esophagitis presenting with intractab le nausea, vomiting: The patient was admitted to the hospital, where she was started on IV pantopraz ole and Pepcid. She was given IV fluids and antiemetics. On hospital day 2, she states she is feeli ng much better and is now tolerating a regular diet. Her anion gap has decreased from 27 on admissio n down to 7. She states that she wants to quit drinking. PHYSICAL EXAM: VITAL SIGNS: On day of discharge, blood pressure 107/76, pulse of 95, respiratory ra te 20, O2 saturation 95% on room air. Temperature afebrile. ABDOMEN: Soft, nontender, nondistended . No guarding or rebound tenderness. Normoactive bowel sounds. LABORATORY DATA: CT of the abdomen done 09/20/2017 revealed moderate size hiatal hernia with concent jory thickening of the distal thoracic esophagus above the hernia and possible duodenitis involving th e third portion of the duodenum. DISCHARGE MEDICATIONS: Please refer to discharge medication reconciliation in [facility] for details. Below is a preliminary list. New medications on hospital discharge: Pantoprazole 40 mg p.o. twice daily, Zofran 4 mg p.o. q.4 ulysses rs p.r.n. nausea and vomiting. Folic acid 1 mg daily. All other home medications were continued at her usual home dosages. DISCHARGE INSTRUCTIONS: The patient will be discharged from the hospital, where she should follow up with her primary care provider. Prior to discharge I did offer her GI consultation, but she told me she was rather hesitant to pursue endoscopy. Given the results of her CT, she should probably be se en by GI on an outpatient basis to further evaluate her esophageal thickening. Once again, the patie nt was counseled to quit drinking, which she states she would like to achieve and maintain sobriety. /[id number]/MODL
--- NOTE | 2017-09-22 16:29 | ASDISCHSUM ---
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 Who do you live with? Type Of Residence What kind of residence do Answers: House you live in? Discharge Plan Comments Coordination Status Comments Notes: Pt is a 78 y/o female admitted for nausea and vomiting. Pt has a hx of ETOH abuse. Pt relapsed after being sober for more than 50 days. Pt reports drinking 2 pints of vodka daily. PT has been ordered and awaiting recommendations. CM met w/ pt for dispo planning. Pt reports that she already has ETOH resources. Pt reports that she has been trying to get sober since 2011. Pt reports that going to AA helps support her sobriety. Pt reports that she will need help getting back home when she is medically ready to d/c. Pt reports that she hasn't eaten in about almost a week. Pt continues to endorse pain and nausea. Anticipates that pt will d/c independent. CM available for changes. Plan: Independent Date Signed: 09/21/2017 09:35 AM Electronically Signed By:ALEYDA Cedillo [facility] CM Progress Note CM Note CM Note Notes: [facility]INFA spoke w/ Dr. Schulz regarding d/c POC. Pt may have relapsed after running out of her psych meds. Pt was requested to have a follow up appointment with [facility] before being prescribed more psych meds. CM left a msg with pts therapist Basilia at [facility] in [place]. CM called [facility] and scheduled a follow appointment w/ her PCP, Dr. Hartmann. CM inputted appointment into [facility]. CM available for d/c needs. Date Signed: 09/21/2017 04:23 PM Electronically Signed By:ALEYDA Cedillo Intervention Information
[2017-09-22] MEDS ORDERED: PANTOPRAZOLE SODIUM 40 MG TAB PO SCH (21:00)
== END 2017-09-22 15:45 | disposition home or self-care (01) ==
LOC: EDUNIT# → F2W 22:21
PROVIDERS: ADMIT Family Medicine; ATTEND Family Medicine
PROC: 3E0337Z Introduction of Electrolytic and Water Balance Substance into Peripheral Vein, Percutaneous Approach (ICD-10-PCS; principal; 2017-09-20)
DX: K29.21 Alcoholic gastritis with bleeding (principal); E86.0 Dehydration; E87.2 Acidosis; E83.52 Hypercalcemia; F10.220 Alcohol dependence with intoxication, uncomplicated; Y90.6 Blood alcohol level of 120-199 mg/100 ml; R79.89 Other specified abnormal findings of blood chemistry; K44.9 Diaphragmatic hernia without obstruction or gangrene; F41.9 Anxiety disorder, unspecified; F32.9 Major depressive disorder, single episode, unspecified; F17.210 Nicotine dependence, cigarettes, uncomplicated
CPT/HCPCS: 71020; 74177; 93005; 96361; 96374; 96375; 97161; 97530; 99285; G0378; G0480; J2060; J2405; J2550; Q9967

== ENCOUNTER 2017-10-01 15:32 | Emergency (ER) | payer MEDICAID ==
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
[2017-10-01] MEDS ORDERED: DOXYCYCLINE 100 MG PREPACK#2 BTL TAKEHOME ONE (17:42)
[2017-10-01 17:55] VITALS: BP 129/90; PULSE 87; RESP 16; TEMP 98.2; O2SAT 97
== END 2017-10-01 17:54 | disposition home or self-care (01) ==
DX: I80.8 Phlebitis and thrombophlebitis of other sites (principal); L03.114 Cellulitis of left upper limb; J44.9 Chronic obstructive pulmonary disease, unspecified; F17.200 Nicotine dependence, unspecified, uncomplicated

== ENCOUNTER 2017-12-09 10:58 | Emergency (ER) | payer MEDICAID ==
--- NOTE | 2017-12-09 11:27 | CPEKG ---
Heart Rate: 102 RR Interval: 588 P-R Interval: 140 QRSD Interval: 78 QT Interval: 332 QTC Interval: 433 P [place]: 53 QRS [place]: 64 T Wave [place]: 63 EKG Severity - OTHERWISE NORMAL ECG - EKG Impression: SINUS TACHYCARDIA Electronically Signed By: Sophia Kyle 09-Dec-2017 15:13:49
[2017-12-09] MEDS ORDERED: NS 1,000 ML IV ONE (11:58)
[2017-12-09] MEDS ORDERED: LORazepam 2 MG/ML INJ IVP ONE (11:58)
[2017-12-09] MEDS ORDERED: PANTOPRAZOLE SODIUM 40 MG VIAL IVP ONE (11:59)
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
[2017-12-09 12:16] LABS: PLATELET COUNT 353 10^3/uL (150-400)
[2017-12-09] MEDS ORDERED: ONDANSETRON 4 MG/2 ML VIAL ONE (13:13)
[2017-12-09] MEDS ORDERED: ONDANSETRON 4 MG/2 ML VIAL IVP ONE (13:14)
[2017-12-09 16:42] VITALS: BP 131/88; PULSE 76; RESP 18; TEMP 98.4; O2SAT 97
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
== END 2017-12-09 16:47 | disposition home or self-care (01) ==
DX: R07.9 Chest pain, unspecified (principal); F10.230 Alcohol dependence with withdrawal, uncomplicated; F17.200 Nicotine dependence, unspecified, uncomplicated
CPT/HCPCS: 96374; J2060; J2405

== ENCOUNTER 2017-12-12 16:00 | Emergency (ER) | payer MEDICAID ==
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
[2017-12-12 16:13] VITALS: TEMP 97.5
[2017-12-12] MEDS ORDERED: ONDANSETRON DISINTEGRATING 4 MG TAB PO ONE (16:47)
[2017-12-12] MEDS ORDERED: ONDANSETRON 4MG PREPACK#2 BTL TAKEHOME ONE (16:47)
[2017-12-12] MEDS ORDERED: PANTOPRAZOLE SODIUM 40 MG TAB PO ONE (16:47)
[2017-12-12 16:57] VITALS: BP 107/72; PULSE 78; RESP 16; O2SAT 95
== END 2017-12-12 17:22 | disposition home or self-care (01) ==
LOC: EDUNIT#
DX: K29.80 Duodenitis without bleeding (principal); K29.20 Alcoholic gastritis without bleeding; F10.230 Alcohol dependence with withdrawal, uncomplicated; J44.9 Chronic obstructive pulmonary disease, unspecified; F17.200 Nicotine dependence, unspecified, uncomplicated

== ENCOUNTER 2018-04-16 18:02 | Emergency (ER) | payer MEDICAID, OTHER ==
--- NOTE | 2018-04-16 17:56 | EDPHY ---
H & P Time Seen by Provider: 04/16/18 17:55 HPI/ROS: CHIEF COMPLAINT: I want to quit drinking HISTORY OF PRESENT ILLNESS: This is a 57 year old female brought to ED by paramedics. The patient tells me that she called for help because she would like to quit drinking and could not figure out how to get a bus to take her to the detox facility. She states that she has been drinking vanilla extract. She clearly states that she would like to quit drinking. She has a history of chronic alcohol abuse and has been seen in this emergency department several times this year and previous years for alcohol-related problems. She also states that she has had recent vomiting. She denies hematemesis or blood in her stools. She is not currently experiencing abdominal pain. REVIEW OF SYSTEMS: A ten point review of systems was performed and is negative with the exception of the items mentioned in the HPI. Past medical history: Alcohol abuse Past surgical history: Tubal ligation Social history: Chronic alcohol abuse. Tobacco abuse. Denies use of illicit drugs. General Appearance: Alert. Vital signs reviewed. Eyes: Pupils equal and round, no conjunctival injection, no discharge. Anicteric. ENT, Mouth: Mucous membranes are moist, no oropharyngeal erythema or edema. Neck: No lymphadenopathy, supple. Respiratory: Lungs are clear to auscultation; no wheezes, rales, or rhonchi. Cardiovascular: Regular rate and rhythm; no murmur, rub, or gallop. Gastrointestinal: Abdomen is soft and nontender, no masses or organomegaly, bowel sounds normal. Skin: Warm and dry, no rashes on exposed skin, normal color. Back: Nontender to palpation over the thoracolumbar spine. No CVAT. Extremities: No lower extremity edema, no calf tenderness or swelling. Neurological: Alert and oriented. Moving all four extremities easily and equally. Psychiatric: Normal affect. Constitutional: Initial Vital Signs Temperature (C) 36.6 C 04/16/18 18:09 Heart Rate 84 04/16/18 18:09 Respiratory Rate 16 04/16/18 18:09 Blood Pressure 128/84 H 04/16/18 18:09 O2 Sat (%) 95 04/16/18 18:09 O2 Delivery Mode Room Air Allergies/Adverse Reactions: No Known Allergies Allergy (Verified 12/09/17 11:00) Home Medications: Medication Instructions Recorded Seroquel 04/16/18 Medical Decision Making ED Course/Re-evaluation: Breathalyzer 150. Will check to she see if she is [facility]. She is eligible for detox at the [facility]. Transportation being arranged. Librium protocol ordered. She remained stable during her ED stay, which was prolonged because of difficulty with transportation to [facility]. Differential Diagnosis: I considered alcohol intoxication, alcohol withdrawal, other substance abuse, malingering. - Data Points Medications Given: Discontinued Medications Chlordiazepoxide (Librium 25 Mg Prepack#6) 1 btl TAKEHOME EDNOW ONE Stop: 04/16/18 21:34 Last Admin: 04/16/18 21:37 Dose: 1 btl Lorazepam (Ativan) 1 mg PO EDNOW ONE Stop: 04/16/18 21:34 Last Admin: 04/16/18 21:37 Dose: 1 mg Departure - Departure Disposition: Home, Routine, Self-Care Clinical Impression: Alcoholic intoxication Qualifiers: Complication of substance-induced condition: uncomplicated Qualified Code(s): F10.920 - Alcohol use, unspecified with intoxication, uncomplicated Condition: Good Instructions: Chlordiazepoxide/Clidinium (By mouth), Abuse of Alcohol (ED) Additional Instructions: Go to [facility] for alcohol detox. Referrals: [facility],. [Clinic] - As per Instructions AA Hotline [Outside] - As per Instructions [facility] Detox 24 Hours [Outside] - As per Instructions
--- NOTE | 2018-04-16 19:14 | ASDISCHSUM ---
Discharge Information Plan Status:Substance Abuse Referrals Medically Cleared to Leave: Discharge Date: CM D/C Disposition:Other (Not listed) ADT D/C Disposition:Home, Routine, Self-Care Projected Discharge Date: Transportation at D/C:Taxicab Discharge Delay Reason: Follow-Up Date: Discharge Slot: Final Diagnosis: Placement Information Patient Contact Information Contact Name:KERI Relationship: Address: Home Phone: Work Phone: City: Alternate Phone: State/Zip Code: Email: Financial Information Financial Class:Medicaid Primary Plan Desc:[employer]ICA[employer] Primary Plan Number:[id number] Secondary Plan Desc: Secondary Plan Number: Assessment Information [facility] CM Progress Note CM Note CM Note Notes: Pt presented to the ED for ETOH intoxication and wanting help with getting sober. Pt was medically cleared and discharged to [facility] detox. Please see past CM Reports 12/09/17, 09/22/17 for additional background information. Date Signed: 04/16/2018 07:12 PM Electronically Signed By:Giselle Ogden RN Intervention Information
[2018-04-16] MEDS: CHLORDIAZEPOXIDE 25MG PREPK#6 BTL TAKEHOME ONE (21:37)
[2018-04-16] MEDS: LORazepam 1 MG TAB PO ONE (21:37)
[2018-04-16 22:26] VITALS: BP 159/77
== END 2018-04-16 22:25 | disposition home or self-care (01) ==
LOC: EDUNIT#
DX: F10.920 Alcohol use, unspecified with intoxication, uncomplicated (principal)

== ENCOUNTER 2018-06-04 18:18 | Emergency (ER) | payer MEDICAID, OTHER ==
[2018-06-04] MEDS ORDERED: NS 1,000 ML IV ONE (18:23)
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
[2018-06-04 18:35] LABS: PLATELET COUNT 197 10^3/uL (150-400)
[2018-06-04 21:40] VITALS: BP 136/80
== END 2018-06-04 21:40 | disposition home or self-care (01) ==
LOC: EDUNIT#
DX: F10.920 Alcohol use, unspecified with intoxication, uncomplicated (principal); Y90.6 Blood alcohol level of 120-199 mg/100 ml; F17.210 Nicotine dependence, cigarettes, uncomplicated
CPT/HCPCS: G0480

== ENCOUNTER 2018-07-14 12:04 | Emergency (ER) | payer MEDICAID, OTHER ==
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
[2018-07-14] MEDS ORDERED: LORazepam 2 MG/ML INJ IVP ONE (12:53)
[2018-07-14] MEDS ORDERED: TDAP ADULT 0.5 ML INJ (BOOSTRIX) IM ONE (12:53)
[2018-07-14 13:13] LABS: PLATELET COUNT 341 10^3/uL (150-400)
[2018-07-14] MEDS: NS 1,000 ML IV ONE ×2 (13:16→14:15)
[2018-07-14 13:28] LABS: INR 0.98 (0.83-1.16); PROTIME(PATIENT) 13.2 SEC (12.0-15.0)
[2018-07-14] MEDS ORDERED: IOPAMIDOL (ISOVUE-300) 100 ML BTL ONE (13:48)
[2018-07-14] MEDS ORDERED: NS 1,000 ML IV ONE (14:00)
[2018-07-14] MEDS ORDERED: KETOROLAC 15 MG/1 ML SDV IVP ONE (15:29)
[2018-07-14 17:55] VITALS: BP 121/78
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
== END 2018-07-14 18:29 | disposition home or self-care (01) ==
LOC: EDUNIT#
DX: S22.31XA Fracture of one rib, right side, initial encounter for closed fracture (principal); Y04.1XXA Assault by human bite, initial encounter; Y92.9 Unspecified place or not applicable; E86.9 Volume depletion, unspecified; F31.9 Bipolar disorder, unspecified; F17.200 Nicotine dependence, unspecified, uncomplicated; F10.10 Alcohol abuse, uncomplicated; Z59.0 Homelessness; J44.9 Chronic obstructive pulmonary disease, unspecified; Z23 Encounter for immunization
CPT/HCPCS: 82435-PO; 82565-PO; 82947-PO; 84132-PO; 84295-PO; 84520-PO; 85014-PO; 96374; G0480; J1885; J2060; Q9967

== ENCOUNTER 2018-07-24 23:56 | Emergency (ER) | payer MEDICAID ==
[2018-07-25 00:35] LABS: PLATELET COUNT 352 10^3/uL (150-400)
--- NOTE | 2018-07-25 01:14 | EDPHY ---
H & P Stated Complaint: ROM from bar hallucinations, lethargy, and body pain Time Seen by Provider: 07/25/18 00:04 HPI/ROS: HPI The patient presents brought in by ambulance for hallucinations, found wandering on the street, walking in circles, staying that she had been attacked. She said that she was hearing voices and she appeared paranoid to the paramedics. There was some concern that her blood glucose was high because she is a diabetic. Though when blood glucose was checked it was 122. Patient admits to alcohol use. When I interview her, she denies any complaints. REVIEW OF SYSTEMS 10 systems were reviewed and negative with the exception of the elements mentioned in the history of present illness. PMHx: Diabetes, COPD, alcoholic gastritis, depression and anxiety Soc Hx: History of alcohol abuse, homelessness, lives on the street PHYSICAL General Appearance: Disheveled, sleepy, non cooperative with exam Eyes: Pupils equal and round no pallor or injection ENT, Mouth: Mucous membranes moist Respiratory: There are no retractions, lungs are clear to auscultation Cardiovascular: Regular rate and rhythm Gastrointestinal: Abdomen is soft and non-tender, no masses, bowel sounds normal Neurological: Sleepy &O, moves all extremities Skin: Warm and dry, no rashes Musculoskeletal: Neck is supple non tender Extremities: symmetrical, full range of motion Psychiatric: The patient is sleepy and refuses to answer questions Source: Patient, EMS, Old records Exam Limitations: Intoxication - Personal History Current Tetanus/Diphtheria Vaccine: Unsure - Medical/Surgical History Hx Asthma: No Hx Chronic Respiratory Disease: No Hx Diabetes: No Hx Cardiac Disease: No Hx Renal Disease: No Hx Cirrhosis: No Hx Alcoholism: Yes Hx HIV/AIDS: No Hx Splenectomy or Spleen Trauma: No Other PMH: ETOH abuse, depression/anxiety, tubal ligation, / copd, costipation and indigestion intermittently, / personality disorder, "my liver's shot" ETOH w /d sz, gastritis - Social History Smoking Status: Heavy smoker Constitutional: Initial Vital Signs Temperature (C) 36.5 C 07/25/18 00:12 Heart Rate 86 07/25/18 00:12 Respiratory Rate 16 07/25/18 00:12 Blood Pressure 136/87 H 07/25/18 00:12 O2 Sat (%) 93 07/25/18 00:12 O2 Delivery Mode Room Air Allergies/Adverse Reactions: No Known Allergies Allergy (Verified 07/25/18 00:06) Home Medications: Medication Instructions Recorded Seroquel 04/16/18 Cyclobenzaprine [Cyclobenzaprine 5 mg PO TID PRN #12 tab 07/14/18 HCl] Medical Decision Making - Diagnostics Imaging Results: Imaging Impressions Chest X-Ray 07/25/18 00:25 Impression: Mild peribronchial thickening, with no focal infiltrate. Imaging: I viewed and interpreted images myself Differential Diagnosis: 58-year-old homeless female with history of depression, hypertension, alcohol abuse presents brought in by ambulance after found wandering in circles outside , saying that she had been attacked and stating that she was hearing voices. Plan for monitoring here. There was initially a report of hemoptysis by paramedics because the patient said she was coughing blood. However we have heard patient cough occasionally here and it is nonproductive. We will check a chest x-ray. I will check basic labs. In the emergency department, patient was allowed to sleep for several hours. Chest x-ray was performed and showed peribronchial thickening with no evidence of pneumonia. Labs were normal, alcohol level was slightly elevated. Patient did not produce a urine specimen for testing. She became more awake and alert and was quite lucid. She denies that she is hearing voices. She is asking for food and I have offered her crackers, however she is upset that she cannot have a full meal here. She is able to walk without difficulty to the bathroom. She is feeling a bit better and will be discharged home. I suspect polysubstance abuse as cause of her symptoms tonight. - Data Points Laboratory Results: Laboratory Results 07/25/18 00:05 07/25/18 00:05 07/25/18 07/25/18 07/25/18 04:50 00:05 00:05 WBC 7.81 10^3/uL 10^3/uL (3.80-9.50) RBC 4.19 10^6/uL 10^6/uL (4.18-5.33) Hgb 11.4 g/dL L g/dL (12.6-16.3) Hct 36.4 % L % (38.0-47.0) MCV 86.9 fL fL (81.5-99.8) MCH 27.2 pg L pg (27.9-34.1) MCHC 31.3 g/dL L g/dL (32.4-36.7) RDW 18.0 % H % (11.5-15.2) Plt Count 352 10^3/uL 10^3/uL (150-400) MPV 9.5 fL fL (8.7-11.7) Neut % (Auto) 40.5 % % (39.3-74.2) Lymph % (Auto) 38.8 % % (15.0-45.0) [place] % (Auto) 9.6 % % (4.5-13.0) Eos % (Auto) 9.9 % H % (0.6-7.6) Baso % (Auto) 0.9 % % (0.3-1.7) Nucleat RBC Rel Count 0.0 % % (0.0-0.2) Absolute Neuts (auto) 3.17 10^3/uL 10^3/uL (1.70-6.50) Absolute Lymphs (auto) 3.03 10^3/uL H 10^3/uL (1.00-3.00) Absolute Monos (auto) 0.75 10^3/uL 10^3/uL (0.30-0.80) Absolute Eos (auto) 0.77 10^3/uL H 10^3/uL (0.03-0.40) Absolute Basos (auto) 0.07 10^3/uL 10^3/uL (0.02-0.10) Absolute Nucleated RBC 0.00 10^3/uL 10^3/uL (0-0.01) Immature Gran % 0.3 % % (0.0-1.1) Immature Gran # 0.02 10^3/uL 10^3/uL (0.00-0.10) Sodium 143 mEq/L mEq/L (135-145) Potassium 4.0 mEq/L mEq/L (3.3-5.0) Chloride 107 mEq/L mEq/L (97-110) Carbon Dioxide 24 mEq/l mEq/l (22-31) Anion Gap 12 mEq/L mEq/L (6-14) BUN 9 mg/dL mg/dL (7-23) Creatinine 0.5 mg/dL L mg/dL (0.6-1.0) Estimated GFR > 60 Glucose 102 mg/dL H mg/dL (70-100) Calcium 10.0 mg/dL mg/dL (8.5-10.4) Total Bilirubin 0.4 mg/dL mg/dL (0.1-1.4) AST 112 IU/L H IU/L (14-46) ALT 85 IU/L H IU/L (9-52) Alkaline Phosphatase 130 IU/L H IU/L (38-126) Total Protein 7.1 g/dL g/dL (6.3-8.2) Albumin 4.1 g/dL g/dL (3.5-5.0) Urine Opiates Screen NEGATIVE (NEGATIVE) Urine Barbiturates NEGATIVE (NEGATIVE) Ur Phencyclidine Scrn NEGATIVE (NEGATIVE) Ur Amphetamine Screen NEGATIVE (NEGATIVE) U Benzodiazepines Scrn NON-NEGATIVE H (NEGATIVE) Urine Cocaine Screen NEGATIVE (NEGATIVE) U Marijuana (THC) Screen NEGATIVE (NEGATIVE) Ethyl Alcohol 84 mg/dL H mg/dL (0-10) Departure - Departure Disposition: [facility] IP Clinical Impression: Cough, Homelessness Altered mental status Qualifiers: Altered mental status type: stupor Qualified Code(s): R40.1 - Stupor Condition: Good Instructions: Acute Cough (ED) Additional Instructions: Please return to the emergency department if your worse in any way. Referrals: [facility],. [Clinic] - As per Instructions
[2018-07-25 05:37] VITALS: BP 144/85
== END 2018-07-25 05:54 | disposition home or self-care (01) ==
LOC: EDUNIT#
DX: R05 Cough (principal); R40.1 Stupor; F10.920 Alcohol use, unspecified with intoxication, uncomplicated; Y90.4 Blood alcohol level of 80-99 mg/100 ml; E11.9 Type 2 diabetes mellitus without complications; J44.9 Chronic obstructive pulmonary disease, unspecified; F32.9 Major depressive disorder, single episode, unspecified; F41.9 Anxiety disorder, unspecified; I10 Essential (primary) hypertension; Z59.0 Homelessness
CPT/HCPCS: 80305; G0480